=== PATIENT | female | born 1945 | race Caucasian/White ===

== ENCOUNTER 2020-03-12 11:24 | Emergency (ER) | payer MEDICARE ==
[~2020-03-12] VITALS: Ht 147.3 cm; Wt 59.1 kg
[2020-03-12] MEDS ORDERED: IBUPROFEN 600 MG TABLET PO ONE (13:00)
[2020-03-12 13:18] VITALS: BP 138/79
== END 2020-03-12 13:28 | disposition home or self-care (01) ==
LOC: EMS 11:35
DX: S93.602A Unspecified sprain of left foot, initial encounter (principal); M17.12 Unilateral primary osteoarthritis, left knee; X58.XXXA Exposure to other specified factors, initial encounter; Y93.89 Activity, other specified; Y92.89 Other specified places as the place of occurrence of the external cause; Y99.8 Other external cause status